=== PATIENT | female | born 1955 | race American Indian/Alaskan Native ===

== ENCOUNTER 2019-04-29 22:10 | Inpatient (IN) | payer MEDICARE ==
--- NOTE | 2019-04-29 22:26 | Emergency Department Report ---
ED Shortness of Breath HPI - General Stated Complaint: SOB Time Seen by Provider: 04/29/19 22:19 Source: patient, EMS - History of Present Illness Initial Comments: 63 yo F with hx ESRD presents to ED in respiratory distress. Pt on dialysis schedule. Missed last dialysis. Last dialyzed 4 days ago, due for dialysis again tomorrow. Pt states SOB began on yesterday. Denies chest pain. EMS reports pt had O2 sats in the 80s on RA upon arrival, gave 2.5 mg of albuterol. EMS attempted CPAP, but pt did not tolerate well and pulled the mask off. O2 sats normal with nonrebreather. Cemetery Worker: Thor Anderson MD Complaint: shortness of breath -: days(s) (2) Severity: severe Consistency: constant Improves With: nothing Worsens With: nothing Treatments Prior to Arrival: oxygen, bronchodilator, NIPPV - Related Data Allergies Allergy/AdvReac Type Severity Reaction Status Date / Time No Known Allergies Allergy Verified 04/29/19 22:45 ED Review of Systems ROS: Stated complaint: SOB Other details as noted in HPI Comment: All other systems reviewed and negative Respiratory: shortness of breath Cardiovascular: denies: chest pain ED Physical Exam - General General appearance: lethargic, in distress - Head Head exam: Present: atraumatic, normocephalic - Eye Eye exam: Present: normal appearance, PERRL, EOMI - ENT ENT exam: Present: mucous membranes moist - Neck Neck exam: Present: normal inspection - Respiratory Respiratory exam: Present: wheezes, decreased breath sounds - Cardiovascular Cardiovascular Exam: Present: regular rate, normal rhythm - GI/Abdominal GI/Abdominal exam: Present: soft. Absent: distended, tenderness - Extremities Exam Extremities exam: Present: normal inspection. Absent: pedal edema, calf tenderness - Neurological Exam Neurological exam: Present: alert, oriented X3 - Psychiatric Psychiatric exam: Present: normal affect, normal mood - Skin Skin exam: Present: diaphoretic ED Course Vital Signs 04/29/19 04/29/19 04/29/19 22:20 22:28 22:30 Temperature 97.8 F Pulse Rate 93 H 92 H Respiratory 17 29 H 23 Rate Blood Pressure 265/100 248/105 O2 Sat by Pulse 96 100 Oximetry 04/29/19 04/29/19 04/29/19 22:45 22:46 23:00 Temperature Pulse Rate 79 93 H 81 Respiratory 29 H 27 H Rate Blood Pressure 248/105 265/100 231/96 O2 Sat by Pulse 100 100 Oximetry 04/29/19 04/29/19 04/29/19 23:15 23:23 23:26 Temperature Pulse Rate 75 68 89 Respiratory 36 H 29 H Rate Blood Pressure 231/96 200/80 200/100 O2 Sat by Pulse 100 100 Oximetry 04/29/19 04/29/19 04/30/19 23:30 23:45 00:00 Temperature Pulse Rate 70 70 66 Respiratory 21 27 H 22 Rate Blood Pressure 198/78 198/78 189/65 O2 Sat by Pulse 99 100 100 Oximetry 04/30/19 04/30/19 04/30/19 00:15 00:31 00:45 Temperature Pulse Rate 67 75 72 Respiratory 19 30 H 28 H Rate Blood Pressure 193/66 182/79 182/79 O2 Sat by Pulse 100 100 100 Oximetry - Consultations Consultation #1: 04/30/19 00:11 Spoke w/ Dr Staley, supervisor contact lens. States will dialyze in the AM. ED Medical Decision Making - Lab Data Result diagrams: 04/29/19 22:26 04/29/19 22:26 - EKG Data -: EKG Interpreted by Mo EKG shows normal: sinus rhythm, axis, intervals, QRS complexes, ST-T waves Rate: normal - EKG Data Interpretation: LVH, other (T wave inversions aVL) - Radiology Data Radiology results: report reviewed, image reviewed - Medical Decision Making 63 yo F w/ acute resp distress. O2 sats in the 80s upon EMS arrival. Pt missd her last scheduled dialysis 2 days ago. Pt initially tachypneic, very hypertensive. BiPAP initiated immediately upon ED arrival. Hydralazine and labetalol given for BP control. EKG showed no acute ST changes. CXR shows RML infiltrate, although pt is afebrile and has normal WBCs. Levaquin given. CXR also appears to have interstitial infiltrates which could represent pulm edema. BNP is 35,000. O2 sats are normal on BiPAP and resp distress has improved greatly. Potassium is normal. Spoke w/ supervisor contact lens, states will dialyze in the AM since pt has stabilized. Will admit to hospitalist, Dr Sharma, for further management. - Differential Diagnosis pulm edema, hyperkalemia, ACS Critical Care Time: Yes Critical care time in (mins) excluding proc time.: 35 Critical care attestation.: If time is entered above; I have spent that time in minutes in the direct care of this critically ill patient, excluding procedure time. Critical Care Time: 35 minutes ED Disposition Clinical Impression: Hypertensive emergency, Acute respiratory failure with hypoxia, Pneumonia, ESRD (end stage renal disease) Disposition: OP ADMIT IP TO THIS HOSP Is pt being admited?: Yes Condition: Stable Time of Disposition: 00:13
[2019-04-29 22:40] LABS: Basophils # (Auto) 0.1 K/mm3 (0.0-0.1); Basophils % (Auto) 0.8 % (0.0-1.8); Eosinophils # (Auto) 0.3 K/mm3 (0.0-0.4); Eosinophils % (Auto) 3.2 % (0.0-4.3); Hematocrit 35.3 % (30.3-42.9); Hemoglobin 11.3 gm/dl (10.1-14.3); Lymphocytes # (Auto) 2.7 K/mm3 (1.2-5.4); Lymphocytes % (Auto) 26.4 % (13.4-35.0); Mean Corpuscular HGB Conc 32 % (30-34); Mean Corpuscular Volume 97 fl (79-97); Monocytes # (Auto) 0.7 K/mm3 (0.0-0.8); Monocytes % (Auto) 6.7 % (0.0-7.3); Platelet Count 238 K/mm3 (140-440); Red Blood Count 3.64 M/mm3 (3.65-5.03); Red Cell Distribution Width 21.2 % (13.2-15.2)
[2019-04-29] MEDS ORDERED: APRESOLINE ONE (22:42)
[2019-04-29] MEDS ORDERED: APRESOLINE IV ONE ×2 (22:45→23:17)
--- NOTE | 2019-04-29 22:57 | XRay Report ---
CHEST 1 VIEW INDICATION: sob COMPARISON: None FINDINGS: Support devices: None Heart: Normal Lungs/Pleura: Focal parenchymal density in the right base, probably right middle lobe, very suggestiv e of pneumonia. IMPRESSION: 1. Findings are very suggestive of right middle lobe pneumonia. Signer Name: Troy Hill MD Signed: 04/29/2019 10:53 PM Workstation Name: [id number]
[2019-04-29 23:12] LABS: INR 1.05 (0.87-1.13)
[2019-04-29 23:13] LABS: Partial Thromboplastin Time 23.4 Sec. (24.2-36.6)
[2019-04-29 23:29] LABS: Calcium 9.7 mg/dL (8.4-10.2)
[2019-04-30] MEDS ORDERED: NORMODYNE IV ONE (00:06)
[2019-04-30] MEDS ORDERED: LEVAQUIN 750MG/150ML 750 MG/150 ML BAG IV ONE ×2 (00:11→01:00)
[2019-04-30] MEDS ORDERED: ATIVAN ONE (00:28)
[2019-04-30] MEDS ORDERED: ATIVAN IV ONE (00:30)
[2019-04-30] MEDS ORDERED: TYLENOL PO PRN (00:36)
[2019-04-30] MEDS ORDERED: SODIUM CHLORIDE FLUSH SYRINGE 10 ML IV PRN (00:36)
[2019-04-30] MEDS ORDERED: ZOFRAN IV PRN (00:36)
[2019-04-30] MEDS ORDERED: PROVENTIL IH PRN (00:36)
--- NOTE | 2019-04-30 01:10 | History and Physical Report ---
<SCOTT CUELLAR - Last Filed: 04/30/19 01:06> History of Present Illness Date of examination: 04/30/19 Date of admission: 04/30/2019 Chief complaint: Difficulty in breathing History of present illness: 63-year-old -Citizen Of [place] female with history of hypertension, ESRD on HD who presents to [facility] ED via EMS with complaints of respiratory distress. At the time of my examination pt is sedated. History is taken from medical records. Pt stated that she missed Friday 04/27 dialysis session. She was last dialyzed on 04/25. 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 Per EMS report patient had oxygen saturation in the 80s on room air. She was given albuterol nebulized treatment and placed on CPAP but did not tolerate mask. Upon arrival to ED patient was placed on nonrebreather with no improvement in saturation she was placed on BiPAP. Past History Past Medical History: ESRD (on HD /), hypertension Past Surgical History: Other (left upper arm AV fistula) Social history: no significant social history Family history: no significant family history Medications and Allergies Allergies Allergy/AdvReac Type Severity Reaction Status Date / Time No Known Allergies Allergy Verified 04/29/19 22:45 Active Meds: Active Medications Acetaminophen (Tylenol) 650 mg PO Q4H PRN PRN Reason: Pain MILD(1-3)/Fever >100.5/[place] Albuterol (Proventil) 2.5 mg IH Q3HRT PRN PRN Reason: Shortness Of Breath Docusate Sodium (Colace) 100 mg PO BID DEBBI Heparin Sodium (Porcine) (Heparin) 5,000 unit SUB-Q Q12HR DEBBI Hydralazine HCl (Apresoline) 10 mg IV Q4H PRN PRN Reason: Blood Pressure Levofloxacin/Dextrose (Levaquin 750mg/150ml) 750 mg in 150 mls @ 100 mls/hr IV ONCE ONE Stop: 04/30/19 01:40 Levofloxacin/Dextrose (Levaquin 500mg/100ml) 500 mg in 100 mls @ 100 mls/hr IV Q48HR DEBBI; Protocol Ondansetron HCl (Zofran) 4 mg IV Q8H PRN PRN Reason: Nausea And Vomiting Sodium Chloride (Sodium Chloride Flush Syringe 10 Ml) 10 ml IV BID DEBBI Sodium Chloride (Sodium Chloride Flush Syringe 10 Ml) 10 ml IV PRN PRN PRN Reason: LINE FLUSH Review of Systems ROS unobtainable: due to mental status Exam - Physical Exam Narrative exam: Physical exam General appearance: Present: No acute distress, sedated, -Citizen Of [place] female - EENT Eyes: Present: PERRL, ENT: hearing intact, normal dentition - Neck Neck: Present: supple, normal ROM - Respiratory Respiratory effort: Labored currently on BiPAP Respiratory: Faint crackles to right upper lobe, diminished bases bilaterally - Cardiovascular Heart rate: 62 (bpm) Rhythm: regular Heart Sounds: Present: S1 & S2. Absent: rub, click - Extremities Extremities: no ischemia, pulses intact, abnormal (left upper arm AV fistula) - Peripheral Assessment Peripheral Pulses: within normal limits - Abdominal General gastrointestinal: soft, non-tender, normal bowel sounds - Integumentary Integumentary: Present: warm, dry - Musculoskeletal Musculoskeletal: generalized weakness -Neurological Neurological: Sedated - Psychiatric Psychiatric: Unable to assess - Constitutional Vitals: Temp Pulse Resp BP Pulse Ox 97.8 F 72 28 H 182/79 100 04/29/19 22:28 04/30/19 00:45 04/30/19 00:45 04/30/19 00:45 04/30/19 00:45 Results - Labs CBC & Chem 7: 04/29/19 22:26 04/29/19 22:26 Labs: Laboratory Last Values WBC 10.1 K/mm3 (4.5-11.0) 04/29/19 22:26 RBC 3.64 M/mm3 (3.65-5.03) L 04/29/19 22:26 Hgb 11.3 gm/dl (10.1-14.3) 04/29/19 22:26 Hct 35.3 % (30.3-42.9) 04/29/19 22:26 MCV 97 fl (79-97) 04/29/19 22:26 MCH 31 pg (28-32) 04/29/19 22:26 MCHC 32 % (30-34) 04/29/19 22:26 RDW 21.2 % (13.2-15.2) H 04/29/19 22:26 Plt Count 238 K/mm3 (140-440) 04/29/19 22:26 Lymph % (Auto) 26.4 % (13.4-35.0) 04/29/19 22: Barren % (Auto) 6.7 % (0.0-7.3) 04/29/19 22: Eos % (Auto) 3.2 % (0.0-4.3) 04/29/19 22: Baso % (Auto) 0.8 % (0.0-1.8) 04/29/19 22: Lymph # 2.7 K/mm3 (1.2-5.4) 04/29/19 22: Barren # 0.7 K/mm3 (0.0-0.8) 04/29/19 22: Eos # 0.3 K/mm3 (0.0-0.4) 04/29/19: Baso # 0.1 K/mm3 (0.0-0.1) 04/29/19 22: Seg Neutrophils % 62.9 % (40.0-70.0) 04/29/19 22: Seg Neutrophils # 6.4 K/mm3 (1.8-7.7) 04/29/19 22: PT 13.4 Sec. (12.2-14.9) 04/29/19 22:45 INR 1.05 (0.87-1.13) 04/29/19 22:45 APTT 23.4 Sec. (24.2-36.6) L 04/29/19 22:45 POC ABG pH 7.347 (7.35-7.45) L 04/29/19 23:29 POC ABG pCO2 39.0 (35-45) 04/29/19 23:29 POC ABG pO2 93 (80-105) 04/29/19 23:29 POC ABG HCO3 21.4 (22-26 mml/L) 04/29/19 23:29 POC ABG Total CO2 23 (23-27mmol/L) 04/29/19 23:29 POC ABG O2 Sat 97 04/29/19 23:29 POC ABG Base Excess -4 ((-2) - (+3)mmol/L) 04/29/19 23:29 40 % 04/29/19 23:29 Sodium 143 mmol/L (137-145) 04/29/19 22:26 Potassium 4.8 mmol/L (3.6-5.0) 04/29/19 22:26 Chloride 101.1 mmol/L (98-107) 04/29/19 22:26 Carbon Dioxide 21 mmol/L (22-30) L 04/29/19 22:26 26 mmol/L 04/29/19 22:26 BUN 43 mg/dL (7-17) H 04/29/19 22:26 12.5 mg/dL (0.7-1.2) H 04/29/19 22:26 Estimated GFR 4 ml/min 04/29/19 22:26 3 % 04/29/19 22:26 Glucose 118 mg/dL (65-100) H 04/29/19 22: Calcium 9.7 mg/dL (8.4-10.2) 04/29/19 22:26 0.017 ng/mL (0.00-0.029) 04/29/19 23:18 NT-Pro-B Natriuret Pep 24436 pg/mL (0-900) H 04/29/19 22:26 - Imaging and Cardiology Chest x-ray: report reviewed (IMPRESSION: Findings are very suggestive of right middle lobe pneumonia.), image reviewed Assessment and Plan Assessment and plan: 63-year-old -Citizen Of [place] female with history of hypertension, ESRD on HD who presents to [facility] ED via EMS with complaints of respiratory distress. Acute Hypoxic Respiratory Failure -No baseline oxygen requirements -Oxygen saturation in the 80's on room air -Currently on BiPAP -ABG 7.347/39/93/21.4 (done on 40% FiO2) -Monitor saturations wean as tolerate Hypertensive urgency -Likely due to volume overload -Continue to monitor BP -IV antihypertensive when necessary -Resume home antihypertensive medication to optimize BP once home med rec is completed ESRD on HD T//S -Missed dialysis session on Sat 04/27 -Nephrology consulted Volume overload -Related to the missing Sat (04/27) dialysis session Pneumonia -CXR findings are very suggestive of right middle lobe pneumonia -Blood Cultures pending -Start on IV Levaquin -No leukocytosis DVT PPX -Heparin -SCD's Medication reconciliation pending Advance Directives: No VTE prophylaxis?: Chemical Plan of care discussed with patient/family: Yes <DENNIS WIGGINS - Last Filed: 04/30/19 02:39> History of Present Illness Date of admission: 04/30/19 00:36 Medications and Allergies Active Meds: Active Medications Acetaminophen (Tylenol) 650 mg PO Q4H PRN PRN Reason: Pain MILD(1-3)/Fever >100.5/[place] Albuterol (Proventil) 2.5 mg IH Q3HRT PRN PRN Reason: Shortness Of Breath Docusate Sodium (Colace) 100 mg PO BID DEBBI Heparin Sodium (Porcine) (Heparin) 5,000 unit SUB-Q Q12HR DEBBI Hydralazine HCl (Apresoline) 10 mg IV Q4H PRN PRN Reason: Blood Pressure Last Admin: 04/30/19 02:17 Dose: 10 mg Documented by: Levofloxacin/Dextrose (Levaquin 500mg/100ml) 500 mg in 100 mls @ 100 mls/hr IV Q48HR DEBBI; Protocol Ondansetron HCl (Zofran) 4 mg IV Q8H PRN PRN Reason: Nausea And Vomiting Sodium Chloride (Sodium Chloride Flush Syringe 10 Ml) 10 ml IV BID DEBBI Sodium Chloride (Sodium Chloride Flush Syringe 10 Ml) 10 ml IV PRN PRN PRN Reason: LINE FLUSH Exam - Constitutional Vitals: Temp Pulse Resp BP Pulse Ox 97.8 F 64 21 195/86 100 04/29/19 22:28 04/30/19 02:17 04/30/19 02:00 04/30/19 02:17 04/30/19 02:00 Results - Labs CBC & Chem 7: 04/29/19 22:26 04/29/19 22:26 Labs: Laboratory Last Values WBC 10.1 K/mm3 (4.5-11.0) 04/29/19 22:26 RBC 3.64 M/mm3 (3.65-5.03) L 04/29/19 22:26 Hgb 11.3 gm/dl (10.1-14.3) 04/29/19 22:26 Hct 35.3 % (30.3-42.9) 04/29/19 22:26 MCV 97 fl (79-97) 04/29/19 22:26 MCH 31 pg (28-32) 04/29/19 22:26 MCHC 32 % (30-34) 04/29/19 22: RDW 21.2 % (13.2-15.2) H 04/29/19 22: Plt Count 238 K/mm3 (140-440) 04/29/19 22: Lymph % (Auto) 26.4 % (13.4-35.0) 04/29/19 22: Barren % (Auto) 6.7 % (0.0-7.3) 04/29/19 22: Eos % (Auto) 3.2 % (0.0-4.3) 04/29/19 22: Baso % (Auto) 0.8 % (0.0-1.8) 04/29/19: Lymph # 2.7 K/mm3 (1.2-5.4) 04/29/19: Barren # 0.7 K/mm3 (0.0-0.8) 04/29/19: Eos # 0.3 K/mm3 (0.0-0.4) 04/29/19: Baso # 0.1 K/mm3 (0.0-0.1) 04/29/19 22: Seg Neutrophils % 62.9 % (40.0-70.0) 04/29/19: Seg Neutrophils # 6.4 K/mm3 (1.8-7.7) 04/29/19 22: PT 13.4 Sec. (12.2-14.9) 04/29/19 22:45 INR 1.05 (0.87-1.13) 04/29/19 22:45 APTT 23.4 Sec. (24.2-36.6) L 04/29/19 22:45 POC ABG pH 7.347 (7.35-7.45) L 04/29/19 23:29 POC ABG pCO2 39.0 (35-45) 04/29/19 23: POC ABG pO2 93 (80-105) 04/29/19 23:29 POC ABG HCO3 21.4 (22-26 mml/L) 04/29/19 23:29 POC ABG Total CO2 23 (23-27mmol/L) 04/29/19 23:29 POC ABG O2 Sat 97 04/29/19 23:29 POC ABG Base Excess -4 ((-2) - (+3)mmol/L) 04/29/19 23:29 40 % 04/29/19 23:29 Sodium 143 mmol/L (137-145) 04/29/19 22:26 Potassium 4.8 mmol/L (3.6-5.0) 04/29/19 22:26 Chloride 101.1 mmol/L (98-107) 04/29/19 22:26 Carbon Dioxide 21 mmol/L (22-30) L 04/29/19 22:26 26 mmol/L 04/29/19 22:26 BUN 43 mg/dL (7-17) H 04/29/19 22:26 12.5 mg/dL (0.7-1.2) H 04/29/19 22:26 Estimated GFR 4 ml/min 04/29/19 22:26 3 % 04/29/19 22:26 Glucose 118 mg/dL (65-100) H 04/29/19 22: Calcium 9.7 mg/dL (8.4-10.2) 04/29/19 22:26 0.017 ng/mL (0.00-0.029) 04/29/19 23:18 NT-Pro-B Natriuret Pep 41880 pg/mL (0-900) H 04/29/19 22:26 Assessment and Plan Assessment and plan: 63 -year-old history of end-stage renal disease on dialysis, hypertension comes emergency room a number started distress, her saturation was in the 80s by EMS. Blood pressure was 265 systolically, she was started on BiPAP given antihypertensive. The patient missed her dialysis, was consulted, the patient will be dialyzed in the morning. Agree with Levaquin for pneumonia
[2019-04-30] MEDS ORDERED: APRESOLINE ONE (02:16)
[2019-04-30] MEDS: APRESOLINE IV PRN ×3 (02:17→13:57)
--- NOTE | 2019-04-30 09:21 | Consultation ---
History of Present Illness - History of Present Illness 63-year-old lady with medical history significant for hypertension, end-stage renal disease on dialysis at [facility] admitted with complaints of shortness of breath and markedly elevated blood pressures last dialysis was she denies any fevers or chills denies any cough she does reports associated orthopnea or PND denies any lower extremity edema she reports she had issues with transportation is why she missed dialysis on Monday. In the emergency room shows placed on BiPAP chest x-ray concerning for right lower lobe pneumonia and also pulmonary edema she was also treated for hypertensive emergency Past History Past Medical History: ESRD (on HD T/), hypertension Past Surgical History: Other (left upper arm AV fistula) Social history: no significant social history Family history: no significant family history Medications and Allergies Allergies Allergy/AdvReac Type Severity Reaction Status Date / Time No Known Allergies Allergy Verified 04/29/19 22:45 Active Meds: Active Medications Acetaminophen (Tylenol) 650 mg PO Q4H PRN PRN Reason: Pain MILD(1-3)/Fever >100.5/[place] Albuterol (Proventil) 2.5 mg IH Q3HRT PRN PRN Reason: Shortness Of Breath Docusate Sodium (Colace) 100 mg PO BID DEBBI Heparin Sodium (Porcine) (Heparin) 5,000 unit SUB-Q Q12HR DEBBI Hydralazine HCl (Apresoline) 10 mg IV Q4H PRN PRN Reason: Blood Pressure Last Admin: 04/30/19 09:04 Dose: 10 mg Documented by: Levofloxacin/Dextrose (Levaquin 500mg/100ml) 500 mg in 100 mls @ 100 mls/hr IV Q48HR [facility]; Protocol Ondansetron HCl (Zofran) 4 mg IV Q8H PRN PRN Reason: Nausea And Vomiting Sodium Chloride (Sodium Chloride Flush Syringe 10 Ml) 10 ml IV BID DEBBI Sodium Chloride (Sodium Chloride Flush Syringe 10 Ml) 10 ml IV PRN PRN PRN Reason: LINE FLUSH Review of Systems Constitutional: no weight loss, no weight gain, no fever, no chills Ears, nose, mouth and throat: no deferred, no ear pain, no ear discharge Cardiovascular: no chest pain, no orthopnea, no rapid/irregular heart beat Respiratory: no cough, no cough with sputum Gastrointestinal: no abdominal pain, no nausea, no vomiting Genitourinary Female: no dyspareunia, no dysmenorrhea Menstruation: no currently menstrual, no premenarcheal Rectal: no pain, no incontinence Musculoskeletal: no neck stiffness, no neck pain Integumentary: no deferred Neurological: no head injury, no transient paralysis Psychiatric: no anxiety, no memory loss Endocrine: no cold intolerance, no heat intolerance Hematologic/Lymphatic: no easy bruising, no easy bleeding Allergic/Immunologic: no urticaria, no allergic rhinitis Exam - Vital Signs Vital signs: Vital Signs Resp 17 04/29/19 22:20 - General Appearance General appearance: well-developed, well-nourished EENT: ATNC, PERRL, mucous membranes moist Neck: Present: neck supple Respiratory: Clear to Ascultation, Decreased Breath Sounds Heart: regular, S1S2 Gastrointestinal: Present: normal, normoactive bowel sounds Integumentary: no rash Neurologic: no focal deficit, CN 3-12 intact Psychiatric: mood/affect appropriate Results - Lab Results 04/29/19 22:26 04/29/19 22:26 Most recent lab results Calcium 9.7 mg/dL (8.4-10.2) 04/29/19 22:26 - Image Kidney/bladder ultrasound: other (reviewed chest x-ray with bilateral interstitial opacities and right basilar patchy opacities ) Assessment and Plan - Patient Problems (1) Acute respiratory failure with hypoxia Current Visit: Yes Status: Acute Plan to address problem: Acute respiratory failure with hypoxia currently on BiPAP chest x-ray with some pulmonary edema also right lung pneumonia Initiates antibiotics Ultrafiltration with dialysis (2) ESRD (end stage renal disease) Current Visit: Yes Status: Acute Plan to address problem: End-stage renal disease with volume overload pulmonary edema Access left arm AV fistula We'll initiate dialysis continue Monday schedule (3) Hypertensive emergency Current Visit: Yes Status: Acute Plan to address problem: Hypertensive emergency Receiving intravenous medications on arrival Continue oral medications (4) Pneumonia Current Visit: Yes Status: Acute Plan to address problem: Pneumonia Right lower lobe opacity Health care associated pneumonia Continue antibiotics
--- NOTE | 2019-04-30 09:42 | Event Note ---
Date: 04/30/19 Patient is seen and examined. Admitted for shortness of breath from acute respiratory failure with hypoxia secondary to pulmonary edema from ESRD .Nephrology seening pt.
[2019-04-30] MEDS: HEPARIN SUB-Q SCH ×2 (10:25→21:14)
[2019-04-30] MEDS: COLACE PO SCH ×3 (10:25→21:13)
[2019-04-30] MEDS: LEVAQUIN 500MG/100ML 500 MG/100 ML BAG IV SCH (10:25)
[2019-04-30] MEDS: SODIUM CHLORIDE FLUSH SYRINGE 10 ML IV SCH ×2 (10:25→21:13)
[2019-04-30 13:14] LABS: Hepatitis B Surface Antigen Non-Reactive (Negative); Hepatitis C Virus Antibody Reactive (NonReactive)
[2019-05-01 07:41] LABS: Basophils % (Auto) 0.5 % (0.0-1.8); Eosinophils % (Auto) 0.2 % (0.0-4.3); Hematocrit 30.1 % (30.3-42.9); Hemoglobin 9.9 gm/dl (10.1-14.3); Lymphocytes # (Auto) 0.9 K/mm3 (1.2-5.4); Lymphocytes % (Auto) 14.1 % (13.4-35.0); Mean Corpuscular HGB Conc 33 % (30-34); Mean Corpuscular Volume 94 fl (79-97); Monocytes # (Auto) 0.6 K/mm3 (0.0-0.8); Monocytes % (Auto) 8.5 % (0.0-7.3); Platelet Count 186 K/mm3 (140-440); Red Blood Count 3.19 M/mm3 (3.65-5.03)
[2019-05-01 07:51] LABS: Red Cell Distribution Width 20.9 % (13.2-15.2)
[2019-05-01 08:07] LABS: Calcium 9.6 mg/dL (8.4-10.2)
[2019-05-01] MEDS: SODIUM CHLORIDE FLUSH SYRINGE 10 ML IV SCH ×2 (09:25→22:05)
[2019-05-01] MEDS: HEPARIN SUB-Q SCH ×2 (09:26→22:05)
[2019-05-01] MEDS: COLACE PO SCH ×2 (09:30→22:00)
--- NOTE | 2019-05-01 15:07 | Progress Note ---
Assessment and Plan - Patient Problems (1) Acute respiratory failure with hypoxia Current Visit: Yes Status: Acute Plan to address problem: Acute respiratory failure with hypoxia currently on BiPAP chest x-ray with some pulmonary edema also right lung pneumonia Initiates antibiotics received Ultrafiltration with dialysis Next HD in am. (2) ESRD (end stage renal disease) Current Visit: Yes Status: Acute Plan to address problem: End-stage renal disease with volume overload pulmonary edema Access left arm AV fistula We'll initiate dialysis continue Monday schedule (3) Hypertensive emergency Current Visit: Yes Status: Acute Plan to address problem: Hypertensive emergency Receiving intravenous medications on arrival Will add amlodipine 5mg daily needs medication reconcilation . (4) Pneumonia Current Visit: Yes Status: Acute Plan to address problem: Pneumonia Right lower lobe opacity Health care associated pneumonia Continue antibiotics Subjective Interval history: 63-year-old lady with medical history significant for hypertension, end-stage renal disease on dialysis at [facility] admitted with complaints of shortness of breath and markedly elevated blood pressures last dialysis was she denies any fevers or chills denies any cough she does reports associated orthopnea or PND denies any lower extremity edema Patient seen today reports breathing is much improved Denies any fevers or chills. currently on 40% ventimask. Objective - Vital Signs Vital signs: Vital Signs - 12hr 05/01/19 05/01/19 05/01/19 04:19 07:34 10:00 Temperature 98.5 F 98.6 F Pulse Rate 72 69 Respiratory 18 18 Rate Blood Pressure 190/64 193/74 O2 Sat by Pulse 94 99 100 Oximetry 05/01/19 11:58 Temperature 98.1 F Pulse Rate 65 Respiratory 18 Rate Blood Pressure 176/57 O2 Sat by Pulse 100 Oximetry - General Appearance General appearance: well-developed, well-nourished EENT: ATNC, PERRL, mucous membranes moist Neck: no JVD Respiratory: Present: Clear to Ascultation Cardiology: regular, S1S2 Gastrointestinal: normal, normoactive bowel sounds Integumentary: no rash Neurologic: no focal deficit, CN 3-12 intact Psychiatric: mood/affect appropriate - Lab 05/01/19 06:47 05/01/19 06:47 Most recent lab results Calcium 9.6 mg/dL (8.4-10.2) 05/01/19 06:47 - Imaging Chest x-ray: image reviewed (I reviewed CXR with bilateral interstitial edema. ) Medications & Allergies - Medications Allergies/Adverse Reactions: Allergies No Known Allergies Allergy (Verified 04/29/19 22:45) Active Medications: Generic Name Dose Route Start Last Admin Trade Name Freq PRN Reason Stop Dose Admin Acetaminophen 650 mg 04/30/19 00:36 04/30/19 10:27 Tylenol PO 650 mg Q4H PRN Administration Pain MILD(1-3)/Fever >100.5/[place] Albuterol 2.5 mg 04/30/19 00:36 Proventil IH Q3HRT PRN Shortness Of Breath Docusate Sodium 100 mg 04/30/19 10:00 05/01/19 09:30 Colace PO Not Given BID DEBBI Heparin Sodium (Porcine) 5,000 unit 04/30/19 10:00 05/01/19 09:26 Heparin SUB-Q 5,000 unit Q12HR DEBBI Administration Hydralazine HCl 10 mg 04/30/19 00:39 04/30/19 13:57 Apresoline IV 10 mg Q4H PRN Administration Blood Pressure Levofloxacin/Dextrose 500 mg in 100 mls @ 100 mls/hr 04/30/19 10:00 04/30/19 10:25 Levaquin 500mg/100ml IV 100 mls/hr Q48HR DEBBI Administration Protocol Ondansetron HCl 4 mg 04/30/19 00:36 Zofran IV Q8H PRN Nausea And Vomiting Sodium Chloride 10 ml 04/30/19 10:00 05/01/19 09:25 Sodium Chloride Flush Syringe 10 Ml IV 10 ml BID DEBBI Administration Sodium Chloride 10 ml 04/30/19 00:36 Sodium Chloride Flush Syringe 10 Ml IV PRN PRN LINE FLUSH
--- NOTE | 2019-05-01 15:10 | Progress Note ---
Assessment and Plan 63-year-old -[place] female with history of hypertension, ESRD on HD who presents to [facility] ED via EMS with complaints of respiratory distress. Acute Hypoxic Respiratory Failure -No baseline oxygen requirements -Oxygen saturation in the 80's on room air -Currently on BiPAP -ABG 7.347/39/93/21.4 (done on 40% FiO2) -Monitor saturations wean as tolerate Hypertensive urgency -Likely due to volume overload -Continue to monitor BP -IV antihypertensive when necessary -Resume home antihypertensive medication to optimize BP ESRD on HD T//S -Missed dialysis session on Sat 04/27 -Nephrology consulted Volume overload -Related to the missing Sat (04/27) dialysis session Pneumonia -CXR findings are very suggestive of right middle lobe pneumonia -Blood Cultures pending -Cont IV Levaquin DVT PPX -Heparin -SCD's - COde status: Full code time spent 32 mins Subjective Date of service: 05/01/19 Principal diagnosis: Acute hypoxemic respirarory failure, ESRD on HD, hynpertensive emergency Interval history: Patient seen and examined. Lying quietly in bed. No distress. On facemask. Denies any fever. No chest pain. Objective - Exam Narrative Exam: Constitutional: Well-nourished well-developed. In no distress Head: Normocephalic atraumatic Eyes: Pupils are equal round and reactive to light Nose: No enlarged turbinates, no septal deviation. Mouth: Moist mucous membranes. Neck: Supple no thyromegaly. No bruit. No JVD Heart: Regular rate and rhythm, S1-S2 normal. No rubs murmurs or gallop Lungs: Decreased breath sounds bilaterally. no rales or rhonchi Abdomen: Soft, nontender. Bowel sound are present. Extremities: No edema, no cyanosis, no clubbing. Neuro: Alert oriented Oriented x3. No focal sensory or motor deficit. Skin: No rashes or hyperpigmented spots Musculoskeletal system: No joint pain or swelling Hematological: No petechia or subcutanous hemorrhages. Immunological: No multiple septic spots on the skin Lymphatic: No generalized lymphadenopathy Psychiatry: Euthymic. Calm. - Constitutional Vitals: Vital Signs - 12hr 05/01/19 05/01/19 05/01/19 04:19 07:34 10:00 Temperature 98.5 F 98.6 F Pulse Rate 72 69 Respiratory 18 18 Rate Blood Pressure 190/64 193/74 O2 Sat by Pulse 94 99 100 Oximetry 05/01/19 11:58 Temperature 98.1 F Pulse Rate 65 Respiratory 18 Rate Blood Pressure 176/57 O2 Sat by Pulse 100 Oximetry - Labs CBC & Chem 7: 05/01/19 06:47 05/01/19 06:47 Labs: Abnormal lab results 05/01/19 05/01/19 Range/Units 06:47 06:47 RBC 3.19 L (3.65-5.03) M/mm3 Hgb 9.9 L (10.1-14.3) gm/dl Hct 30.1 L (30.3-42.9) % RDW 20.9 H (13.2-15.2) % [place] % (Auto) 8.5 H (0.0-7.3) % Lymph # 0.9 L (1.2-5.4) K/mm3 Seg Neutrophils % 76.7 H (40.0-70.0) % Chloride 96.2 L (98-107) mmol/L Carbon Dioxide 31 H D (22-30) mmol/L BUN 25 H (7-17) mg/dL Creatinine 8.7 H (0.7-1.2) mg/dL
[2019-05-01] MEDS: NORVASC PO SCH (16:22)
[2019-05-01] MEDS: APRESOLINE IV PRN (16:25)
[2019-05-02] MEDS: APRESOLINE IV PRN ×2 (05:08→16:30)
[2019-05-02] MEDS: LEVAQUIN 500MG/100ML 500 MG/100 ML BAG IV SCH (10:44)
[2019-05-02] MEDS: NORVASC PO SCH (10:45)
[2019-05-02] MEDS: COLACE PO SCH (10:45)
[2019-05-02] MEDS: SODIUM CHLORIDE FLUSH SYRINGE 10 ML IV SCH (10:46)
[2019-05-02] MEDS: HEPARIN SUB-Q SCH (10:46)
--- NOTE | 2019-05-02 11:52 | Discharge Summary ---
Providers - Providers Date of Admission: 04/30/19 00:36 Date of discharge: 05/02/19 Attending physician: JESSICA VELEZ 04/30/19 00:10 Consult to Physician [CONS] Stat Comment: Consulting Provider: YINA PERALTA Physician Instructions: Reason For Exam: esrd Primary care physician: KEYBOARD OPERATOR Hospitalization Reason for admission: acute respiratory failure with hypoxia, ESRD on HD,pnumonia Condition: Stable Pertinent studies: Chest x-ray shows right lobar pneumonia Procedures: none Hospital course: 63-year-old -[place] female with history of hypertension, ESRD on HD who presents to [facility] ED via EMS with complaints of respiratory distress. At the time of my examination pt is sedated. History is taken from medical records. Pt stated that she missed Friday 04/27 dialysis session. She was last dialyzed on 04/25. Her training designer is Dr White at [facility]. Per EMS report patient had oxygen saturation in the 80s on room air. She was given albuterol nebulized treatment and placed on CPAP but did not tolerate mask. Upon arrival to ED patient was placed on nonrebreather with no improvement in saturation she was placed on BiPAP. Nephrology consult was obtained. This was commenced on hemodialysis. Had severely elevated blood pressure that was controlled with oral antihypertensive medications. Chest x-ray shows a right lower lobe pneumonia. He was commenced on Levaquin. Remains afebrile. No leukocytosis. BUN/creatinine improved. Discussed with training designer. Patient is to be discharged today to follow with primary care physician in 2-5 days as well as nephrology in 2 days as her shortness of breath has improved and renal function is gone down to baseline. Condition on discharge was satisfactory. Disposition: DC-[id number] TO HOME OR SELFCARE Time spent for discharge: 35 minutes - Discharge Diagnoses (1) Acute respiratory failure with hypoxia Status: Acute (2) ESRD (end stage renal disease) Status: Acute (3) Hypertensive emergency Status: Acute (4) Pneumonia Status: Acute Core Measure Documentation - Palliative Care Palliative Care/ Comfort Measures: Not Applicable - Core Measures Any of the following diagnoses?: none Exam - Physical Exam Narrative exam: Constitutional: Well-nourished well-developed. In no distress Head: Normocephalic atraumatic Eyes: Pupils are equal round and reactive to light Nose: No enlarged turbinates, no septal deviation. Mouth: Moist mucous membranes. Neck: Supple no thyromegaly. No bruit. No JVD Heart: Regular rate and rhythm, S1-S2 normal. No rubs murmurs or gallop Lungs: Decreased breath sounds bilaterally. no rales or rhonchi Abdomen: Soft, nontender. Bowel sound are present. Extremities: No edema, no cyanosis, no clubbing. Neuro: Alert oriented Oriented x3. No focal sensory or motor deficit. Skin: No rashes or hyperpigmented spots Musculoskeletal system: No joint pain or swelling Hematological: No petechia or subcutanous hemorrhages. Immunological: No multiple septic spots on the skin Lymphatic: No generalized lymphadenopathy Psychiatry: Euthymic. Calm. - Constitutional Vitals: Temp Pulse Resp BP Pulse Ox 97.9 F 65 18 184/59 95 05/02/19 08:11 05/02/19 10:45 05/02/19 08:11 05/02/19 10:45 05/02/19 08:29 Plan Activity: fall precautions Weight Bearing Status: Weight Bear as Tolerated Diet: low salt, renal Follow up with: PRIMARY CARE, [Primary Care Provider] - 3-5 Days Prescriptions: amLODIPine [Norvasc] 5 mg PO QDAY #30 tablet Azithromycin [Zithromax TAB] 500 mg PO QDAY #3 tablet
[2019-05-02] MEDS ORDERED: NACL 0.9 (PRIMING MACHINE ONLY DIALYSIS) MC ONE (16:26)
--- NOTE | 2019-05-02 18:09 | Progress Note ---
Assessment and Plan - Patient Problems (1) Acute respiratory failure with hypoxia Current Visit: Yes Status: Acute Plan to address problem: Acute respiratory failure with hypoxia currently on BiPAP chest x-ray with some pulmonary edema also right lung pneumonia Initiates antibiotics received Ultrafiltration with dialysis Continue TTS. (2) ESRD (end stage renal disease) Current Visit: Yes Status: Acute Plan to address problem: End-stage renal disease with volume overload pulmonary edema Access left arm AV fistula We'll initiate dialysis continue Monday schedule (3) Hypertensive emergency Current Visit: Yes Status: Acute Plan to address problem: Hypertensive emergency Receiving intravenous medications on arrival Will increase amlodipine to 10mg daily needs medication reconcilation . (4) Pneumonia Current Visit: Yes Status: Acute Plan to address problem: Pneumonia Right lower lobe opacity Health care associated pneumonia Continue antibiotics Subjective Principal diagnosis: Acute hypoxemic respirarory failure, ESRD on HD, hynpertensive emergency Interval history: 63-year-old lady with medical history significant for hypertension, end-stage renal disease on dialysis at [facility] admitted with complaints of shortness of breath and markedly elevated blood pressures last dialysis was she denies any fevers or chills denies any cough she does reports associated orthopnea or PND denies any lower extremity edema Patient seen today reports breathing is much improved Denies any fevers or chills. did develop cramping ,nausea, lightheadedness on dialysis UF stopped She received Fluid boluses with improvement EKG ordered Elevated Blood pressure noted. Objective - Vital Signs Vital signs: Vital Signs - 12hr 05/02/19 05/02/19 05/02/19 08:11 08:29 10:00 Temperature 97.9 F Pulse Rate 65 65 Respiratory 18 20 Rate Blood Pressure 184/59 O2 Sat by Pulse 100 95 95 Oximetry 05/02/19 05/02/19 05/02/19 10:45 15:15 15:30 Temperature 98.4 F Pulse Rate 65 71 65 Respiratory 18 Rate Blood Pressure 184/59 189/77 175/73 O2 Sat by Pulse Oximetry 05/02/19 05/02/19 05/02/19 15:45 16:00 16:15 Temperature Pulse Rate 65 64 62 Respiratory Rate Blood Pressure 191/76 204/73 207/80 O2 Sat by Pulse Oximetry 08/29/19 08/29/19 08/29/19 16:30 16:45 17:00 Temperature Pulse Rate 64 69 63 Respiratory Rate Blood Pressure 206/76 189/73 165/52 O2 Sat by Pulse Oximetry - General Appearance General appearance: well-developed, well-nourished EENT: ATNC, PERRL Neck: no JVD Respiratory: Present: Clear to Ascultation Cardiology: regular, S1S2 Gastrointestinal: normal, normoactive bowel sounds Integumentary: no rash Neurologic: no focal deficit, CN 3-12 intact Psychiatric: mood/affect appropriate - Lab 05/01/19 06:47 05/01/19 06:47 Most recent lab results Calcium 9.6 mg/dL (8.4-10.2) 05/01/19 06:47 - Imaging Chest x-ray: image reviewed (i reviewed CXR with interstitial edema. ) Medications & Allergies - Medications Allergies/Adverse Reactions: Allergies No Known Allergies Allergy (Verified 04/29/19 22:45) Home Medications: Home Medications Medication Instructions Recorded Confirmed Last Taken Type ALBUTEROL NEB's [Proventil 0.083% 2.5 mg IH Q3HRT PRN nebu 05/02/19 Unknown Rx NEBS] Acetaminophen [Acetaminophen TAB] 650 mg PO Q4H PRN tablet 05/02/19 Unknown Rx Azithromycin [Zithromax TAB] 500 mg PO QDAY #3 tablet 05/02/19 Unknown Rx Docusate Sodium [Colace CAP] 100 mg PO BID capsule 05/02/19 Unknown Rx amLODIPine [Norvasc] 5 mg PO QDAY #30 tablet 05/02/19 Unknown Rx Active Medications: Generic Name Dose Route Start Last Admin Trade Name Umeshq PRN Reason Stop Dose Admin Acetaminophen 650 mg 04/30/19 00:36 04/30/19 10:27 Tylenol PO 650 mg Q4H PRN Administration Pain MILD(1-3)/Fever >100.5/DE [place] CRUZ Albuterol 2.5 mg 04/30/19 00:36 Proventil IH Q3HRT PRN Shortness Of Breath Amlodipine Besylate 5 mg 05/01/19 16:00 05/02/19 10:45 Norvasc PO 5 mg QDAY DEBBI Administration Docusate Sodium 100 mg 04/30/19 10:00 05/02/19 10:45 Colace PO Not Given BID DEBBI Heparin Sodium (Porcine) 5,000 unit 04/30/19 10:00 05/02/19 10:46 Heparin SUB-Q 5,000 unit Q12HR DEBBI Administration Hydralazine HCl 10 mg 04/30/19 00:39 05/02/19 16:30 Apresoline IV 10 mg Q4H PRN Administration Blood Pressure Levofloxacin/Dextrose 500 mg in 100 mls @ 100 mls/hr 04/30/19 10:00 05/02/19 10:44 Levaquin 500mg/100ml IV 05/08/19 10:59 100 mls/hr Q48HR DEBBI Administration Protocol Labetalol HCl 20 mg 05/02/19 19:00 Normodyne IV 05/02/19 19:01 ONCE ONE Ondansetron HCl 4 mg 04/30/19 00:36 Zofran IV Q8H PRN Nausea And Vomiting Sodium Chloride 10 ml 04/30/19 10:00 05/02/19 10:46 Sodium Chloride Flush Syringe 10 Ml IV 10 ml BID DEBBI Administration Sodium Chloride 10 ml 04/30/19 00:36 Sodium Chloride Flush Syringe 10 Ml IV PRN PRN LINE FLUSH
[2019-05-02 18:38] LABS: Chol/HDL Ratio 2.52 %
[2019-05-02] MEDS ORDERED: NORVASC PO SCH (19:00)
[2019-05-02] MEDS ORDERED: NORMODYNE IV ONE (19:00)
[2019-05-02 21:20] VITALS: BP 163/58
== END 2019-05-02 22:17 | disposition home or self-care (01) | DRG 193 ==
LOC: ED 22:10 → 4A 04-30 00:36
PROVIDERS: ADMIT Internal Medicine; ATTEND Family Medicine
PROC: 5A09357 Assistance with Respiratory Ventilation, Less than 24 Consecutive Hours, Continuous Positive Airway Pressure (ICD-10-PCS; 2019-04-29)
PROC: 4A033R1 Measurement of Arterial Saturation, Peripheral, Percutaneous Approach (ICD-10-PCS; 2019-04-29)
PROC: 5A09357 Assistance with Respiratory Ventilation, Less than 24 Consecutive Hours, Continuous Positive Airway Pressure (ICD-10-PCS; principal; 2019-04-30)
PROC: 5A1D70Z Performance of Urinary Filtration, Intermittent, Less than 6 Hours Per Day (ICD-10-PCS; 2019-04-30)
PROC: 5A1D70Z Performance of Urinary Filtration, Intermittent, Less than 6 Hours Per Day (ICD-10-PCS; 2019-05-02)
DX: J18.1 Lobar pneumonia, unspecified organism (principal); J96.01 Acute respiratory failure with hypoxia; N18.6 End stage renal disease; I16.1 Hypertensive emergency; I12.0 Hypertensive chronic kidney disease with stage 5 chronic kidney disease or end stage renal disease; E87.70 Fluid overload, unspecified
CPT/HCPCS: 36415; 71045; 80048; 80061; 80074; 82803; 82962; 83880; 84484; 85025; 85610; 85730; 87040; 93005; 93010; 94660; 94760; G0378; J0360; J1644; J1956; J2060; J7030